=== PATIENT | female | born 1985 | race Caucasian/White ===

== ENCOUNTER → 2016-04-17 | Day surgery (SDC) | payer OTHER ==
[~2016-04-17] VITALS: Ht 165.1 cm; Wt 86.2 kg
[~2016-04-17] MED LIST: BACTRIM DS TAB1 EACH PO; CEPHALEXIN500 M3 PO; TRI-PREVIFEM T1 EACH PO
--- NOTE | 2016-04-22 19:30 | Operative Report ---
Operative/Inv Procedure Report Surgery Date: 04/17/16 Name of Procedure: Scott endocervical curettage Pre-Operative Diagnosis: Chronic cervicitis abnormal Paps Post-Operative Diagnosis: Same Estimated Blood Loss: less than 50ml Surgeon/[employer] Records Clerk: SUNI DOOLEY,CIARA John Anesthesia: moderate sedation Operative/Procedure Note Note: Procedure note patient was safely after placed on position after adequate anesthesia patient placed in dorsolithotomy position vagina from dorsal fashion bladder was catheterized examination anesthesia was performed patient tolerated this well this point Lugol's was placed on cervix the fine-tuned consistent with previous colposcopies on a 39 respectively a stay suture with 0 after Marcaine was injected off [id number] was placed at this point a LEEP cone was performed the endocervical curettage performed afterwards at this surgical basing off the LEEP was Bovie coagulated using rollerball technique patient tolerated this well some Erik was placed in the bottom on the surgical LEEP XDIVOT patient heart that well. On since was a vagina patient was returned spine position she was awakened from anesthesia and transferred recovery room awake alert
== END ==
LOC: STS 02:08
DX: N72 Inflammatory disease of cervix uteri (principal); R87.619 Unspecified abnormal cytological findings in specimens from cervix uteri
CPT/HCPCS: 88305; 88307; J0131; J2250

== ENCOUNTER 2016-08-31 03:10 | Emergency (ER) | payer OTHER ==
[~2016-08-31] VITALS: Ht 165.1 cm; Wt 81.6 kg
[2016-08-31 03:32] VITALS: BP 102/67
[2016-08-31] MEDS ORDERED: TRI-PREVIFEM T1 EACH PO (03:51)
[2016-08-31] MEDS ORDERED: CEPHALEXIN500 M3 PO (04:26)
[2016-08-31] MEDS ORDERED: BACTRIM DS TAB1 EACH PO (04:26)
--- NOTE | 2016-08-31 04:26 | ED SKIN/ALLERGY COMPLAINT ---
History of Present Illness General Chief Complaint: Skin Rash/ Abcess Stated Complaint: SKIN REDNESS, Source: patient Exam Limitations: no limitations Vital Signs & Intake/Output Vital Signs & Intake/Output Vital Signs Date Time Temp Pulse Resp B/P B/P Pulse O2 O2 Flow FiO2 Mean Ox Delivery Rate 08/31 0332 98.4 93 22 102/67 98 Allergies Coded Allergies: clindamycin (HIVES 08/31/16) Reconcile Medications Norgestimate-Ethinyl Estradiol (Tri-Previfem Tablet) 4LOYWV2 28 TABLET 1 TAB PO DAILY BCP (Reported) Triage Note: PER PT HAD A TATTOO WHILE IN [place], THINK ITS INFECTED. SWELLING TO LLE TO CALF, AREA AROUND TATTOO, RED. PT DENIES ANY FEVERS. Triage Nurses Notes Reviewed? yes : No Patient currently breastfeeds: No HPI: Patient presents for evaluation of an infected tattoo that she had placed in [place] on Thursday. Patient tattoo is on the left ankle and has gradually developed a surrounding erythema and worsening pain. Patient denies any associated fever or cold symptoms. Patient's redness and pain has been constant since onset and described as moderate in intensity. Past History Travel History Traveled to [place] past 21 day No Medical History Any Pertinent Medical History? see below for history Neurological: NONE EENT: NONE Cardiovascular: NONE Respiratory: NONE Gastrointestinal: NONE Hepatic: NONE Renal: NONE Musculoskeletal: NONE Psychiatric: NONE Endocrine: NONE Surgical History Surgical History: non-contributory Psychosocial History What is your primary language Peruvian Tobacco Use: Never used Family History Hx Contributory? No Review of Systems Review of Systems Constitutional: Reports: no symptoms. EENTM: Reports: no symptoms. Respiratory: Reports: no symptoms. Cardiovascular: Reports: no symptoms. GI: Reports: no symptoms. Genitourinary: Reports: no symptoms. Musculoskeletal: Reports: no symptoms. Skin: Reports: see HPI. Neurological/Psychological: Reports: no symptoms. Hematologic/Endocrine: Reports: no symptoms. Immunologic/Allergic: Reports: no symptoms. All Other Systems: Reviewed and Negative Physical Exam Physical Exam General Appearance: SEE BELOW Comments: Gen.: Well-nourished, well-developed, no acute respiratory distress. Head: Normocephalic, atraumatic. Eyes: Normal inspection bilaterally Ears: Normal inspection bilaterally Nose: Normal inspection, nasal cannula in place Throat/mouth : Moist mucosa Neck: Supple, full range of motion, no goiter Heart: Regular rate and rhythm Lungs: Quiet respirations Back: Normal range of motion Extremities: Left lower extremity: Fresh appearing tattoo of the left ankle with surrounding erythema Neurologic: Cranial nerves grossly intact, speech is clear Skin: warm and dry Psychiatric: Calm, cooperative, no apparent delusions or hallucinations Progress Differential Diagnosis: abscess/cellulitis Plan of Care: Antibiotics Departure Departure Disposition: HOME OR SELF CARE Condition: Stable Clinical Impression Primary Impression: Cellulitis of left ankle Referrals: DEREK HARMAN MD (PCP/Family) Additional Instructions: Cephalexin and Bactrim as prescribed. Dressing as needed. Follow-up with your primary care doctor in 72 hours for reevaluation. Return if any concerns or sudden worsening. Thank you for choosing the [facility] for your care. It was a pleasure to serve you today. Jeff Ireland M.D. [facility] Departure Forms: Customer Survey General Discharge Information Prescriptions: Current Visit Scripts Cephalexin 1 CAP PO Q6 #40 CAP Sulfamethoxazole/Trimethoprim (Bactrim Ds Tablet) 1 TAB PO BID #20 TAB
== END 2016-08-31 04:34 ==
LOC: ERH 03:10
DX: L03.116 Cellulitis of left lower limb (principal)